=== PATIENT | male | born 1955 | race Caucasian/White ===

== ENCOUNTER 2023-05-24 12:24 | Emergency (ER) | payer BC ==
[~2023-05-24] VITALS: Ht 180.3 cm; Wt 149.1 kg
[~2023-05-24 12:24] MED LIST: ZOCOR 20MG20 MG PO
[2023-05-24 12:36] VITALS: TEMP 98.3
[2023-05-24 13:16] LABS: HEMATOCRIT 40.4 % (42.0-52.0); HEMOGLOBIN 13.1 g/dl (13.5-18.0); MEAN CELL VOLUME 99 fl (80.0-100.0); MEAN CORPUSCULAR HEMOGLOBIN 32 pg (27-31); MEAN CORPUSCULAR HGB CONC 32 g/dl (33.0-37.0); MEAN PLATELET VOLUME 9.5 fl (7.4-10.4); PLATELET COUNT 339 K/mm3 (130-400); REDCELL DISTRIBUTION WIDTH-CV 13.8 % (11.5-14.5)
[2023-05-24 13:34] LABS: ALANINE AMINOTRANSFERASE 35 U/L (0-55); ALBUMIN 3.8 gm/dL (3.4-4.8); ALKALINE PHOSPHATASE 56 U/L (40-150); ANION GAP 13 mmol/L (7-16); AST,SGOT 29 U/L (5-34); BILIRUBIN,TOTAL 0.5 mg/dL (0.2-1.2); BLOOD UREA NITROGEN 16 mg/dL (8-26); CALCIUM 9.4 mg/dL (8.4-10.2); CARBON DIOXIDE 20 mmol/L (23-31); CHLORIDE 110 mmol/L (98-107); CREATININE, serum 0.86 mg/dL (0.72-1.25); GLUCOSE 113 mg/dL (70-99); POTASSIUM 4.3 mmol/L (3.5-4.5); SODIUM 143 mmol/L (136-145)
[2023-05-24 13:40] LABS: TROPONIN-I < 0.010 ng/mL (0.00-0.033)
[2023-05-24 14:12] LABS: BAND 8 % (0-10); LYMPHOCYTE 2 % (20.0-51.0); NEUTROPHILS 84 % (42.0-75.2); PLATELET ESTIMATE NORMAL (NORMAL)
[2023-05-24 15:23] VITALS: BP 157/91; PULSE 76
== END 2023-05-24 15:45 | disposition home or self-care (01) ==
LOC: COL.ER 12:24
PROVIDERS: Emergency Medicine
DX: R06.00 Dyspnea, unspecified (principal); R07.9 Chest pain, unspecified; Z28.310 Unvaccinated for COVID-19
CPT/HCPCS: Q9967